=== PATIENT | male | born 1960 | race African-American/Black ===

== ENCOUNTER 2019-09-18 11:21 | Emergency (ER) | payer MEDICAID, OTHER ==
[~2019-09-18] VITALS: Ht 188 cm; Wt 65.0 kg
[2019-09-18 12:46] LABS: BASOPHILS % 0.5 % (0.0-2.0); EOSINOPHILS % 2.5 % (0.0-5.0); HEMOGLOBIN. 15.7 g/dL (14.0-18.0); LYMPHOCYTES % 19.5 % (20.0-50.0); MEAN CORPUSCULAR HEMOGLOBIN 35.6 pg (28.0-32.0); MEAN PLATELET VOLUME 7.9 fl (7.4-10.4); MONOCYTES % 10.7 % (2.0-8.0); NEUTROPHILS % 66.8 % (40.0-76.0); PLATELET 174 x1000/uL (130-400); RED BLOOD CELL COUNT 4.41 mill/uL (4.7-6.1); RED CELL DISTRIBUTION WIDTH 13.7 % (11.6-14.6)
[2019-09-18 12:53] LABS: CHLORIDE 107 mEq/L (98-107)
[2019-09-18 12:57] LABS: ETHANOL BLOOD 34 mg/dL
[2019-09-18 15:27] LABS: CLARITY URINE CLEAR (CLEAR); COLOR URINE YELLOW (YELLOW); KETONES URINE NEGATIVE (NEGATIVE); LEUKOCYTE ESTERASE URINE NEGATIVE (NEGATIVE); NITRITE URINE NEGATIVE (NEGATIVE); OCCULT BLOOD URINE NEGATIVE (NEGATIVE); PROTEIN URINE TRACE (NEGATIVE); SPECIFIC GRAVITY URINE 1.022 (1.005-1.030); UROBILINOGEN URINE 0.2 E.U./dL (0.2-1.0)
[2019-09-18 15:50] LABS: *AMPHETAMINES SCREEN URINE NEGATIVE (NEGATIVE); *BARBITURATES SCREEN URINE NEGATIVE (NEGATIVE); *BENZODIAZEPINES SCREEN URINE NEGATIVE (NEGATIVE); *COCAINE SCREEN URINE NEGATIVE (NEGATIVE)
[2019-09-18 15:51] LABS: CANNABINOID URINE SCREEN NEGATIVE (NEGATIVE); METHADONE URINE SCREEN NEGATIVE (NEGATIVE); OPIATES URINE SCREEN NEGATIVE (NEGATIVE); PHENCYCLIDINE URINE SCREEN NEGATIVE (NEGATIVE)
[2019-09-18 18:26] VITALS: BP 120/68
== END 2019-09-18 18:28 | disposition home or self-care (01) ==
LOC: ER 11:21
DX: R56.9 Unspecified convulsions (principal); F17.210 Nicotine dependence, cigarettes, uncomplicated
CPT/HCPCS: 36415; 71045; 80305; 80320; 81003; 83735; 83880; 84484; 93005; 99284; 99406; G0480

== ENCOUNTER 2022-10-19 01:59 | Emergency (ER) | payer MEDICAID ==
[~2022-10-19] VITALS: Ht 188 cm; Wt 62.0 kg
[2022-10-19] MEDS ORDERED: ALBUTEROL (0.083%) 2.5MG/3ML NEB HHN STA (03:14)
[2022-10-19] MEDS ORDERED: METHYLPREDNISOLONE SOD SUCC 125 MG/2 ML VIAL IV STA (03:14)
[2022-10-19] MEDS ORDERED: IPRATROPIUM BROMIDE (0.02%) 0.5MG/2.5ML NEB HHN STA (03:14)
[2022-10-19 03:26] LABS: BASOPHILS % 1.9 % (0.0-2.0); EOSINOPHILS % 2.6 % (0.0-5.0); HEMATOCRIT. 41.6 % (42.0-52.0); HEMOGLOBIN. 14.2 g/dL (14.0-18.0); LYMPHOCYTES % 27.6 % (20.0-50.0); MEAN CORPUSCULAR HEMOGLOBIN 34.9 pg (28.0-32.0); MEAN CORPUSCULAR VOLUME 102.1 fL (80.0-94.0); MEAN PLATELET VOLUME 7.6 fl (7.4-10.4); NEUTROPHILS % 54.9 % (40.0-76.0); PLATELET 207 x1000/uL (130-400); RED BLOOD CELL COUNT 4.07 mill/uL (4.7-6.1); RED CELL DISTRIBUTION WIDTH 14.9 % (11.6-14.6)
[2022-10-19 03:34] LABS: CHLORIDE 106 mEq/L (98-107)
[2022-10-19 11:20] VITALS: BP 125/73
== END 2022-10-19 11:37 | disposition left against medical advice (07) ==
LOC: ER 01:59 → EDBEDREQTM 05:59 → EDBEDREQ 05:59 → ER 11:37 → CANBEDREQ 10-21 09:27
DX: J44.1 Chronic obstructive pulmonary disease with (acute) exacerbation (principal); I49.8 Other specified cardiac arrhythmias; F17.210 Nicotine dependence, cigarettes, uncomplicated
CPT/HCPCS: 36415; 71045; 80053; 83880; 84484; 85025; 93005; 96374; 99285; J2930; Z7610

== ENCOUNTER 2022-10-23 22:57 | Emergency (ER) | payer MEDICAID ==
[~2022-10-23] VITALS: Ht 188 cm; Wt 59.0 kg
[2022-10-23 23:00] VITALS: BP 156/106
== END 2022-10-24 01:48 | disposition home or self-care (01) ==
LOC: ER 23:17
DX: R06.02 Shortness of breath (principal); R94.31 Abnormal electrocardiogram [ECG] [EKG]; J44.9 Chronic obstructive pulmonary disease, unspecified; F17.210 Nicotine dependence, cigarettes, uncomplicated
CPT/HCPCS: 93005; 99283

== ENCOUNTER 2022-12-15 13:09 | Inpatient (IN) | payer MEDICAID ==
[~2022-12-15] VITALS: Ht 175.3 cm; Wt 55.3 kg
[2022-12-15] MEDS ORDERED: SODIUM CHLORIDE 0.9% 1000ML BAG (SEPSIS BOLUS) IV ONE (13:45)
[2022-12-15 14:04] LABS: HEMATOCRIT. 48.1 % (42.0-52.0); MEAN CORPUSCULAR HEMOGLOBIN 34.4 pg (28.0-32.0); MEAN CORPUSCULAR VOLUME 103.2 fL (80.0-94.0); MEAN PLATELET VOLUME 8.7 fl (7.4-10.4); PLATELET 151 x1000/uL (130-400); RED BLOOD CELL COUNT 4.66 mill/uL (4.7-6.1); RED CELL DISTRIBUTION WIDTH 14.5 % (11.6-14.6)
[2022-12-15 14:37] LABS: PROTHROMBIN TIME 10.8 sec (9.6-11.0)
[2022-12-15 14:38] LABS: CHLORIDE 94 mEq/L (98-107)
[2022-12-15 14:43] LABS: PLATELET ESTIMATE NORMAL
[2022-12-15 14:49] LABS: ETHANOL BLOOD 70 mg/dL
[2022-12-15] MEDS ORDERED: LEVOFLOXACIN 500MG PREMIX 100 ML IV ONE (15:15)
[2022-12-15] MEDS ORDERED: METRONIDAZOLE 500MG TABLET PO ONE (15:15)
[2022-12-15 15:50] LABS: CLARITY URINE CLOUDY (CLEAR); COLOR URINE YELLOW (YELLOW); KETONES URINE NEGATIVE (NEGATIVE); LEUKOCYTE ESTERASE URINE TRACE (NEGATIVE); NITRITE URINE NEGATIVE (NEGATIVE); OCCULT BLOOD URINE 3+ (NEGATIVE); PH URINE 7.5 (4.5-8.0); PROTEIN URINE 2+ (NEGATIVE); SPECIFIC GRAVITY URINE 1.008 (1.005-1.030)
[2022-12-15] MEDS ORDERED: VANCOMYCIN 1G PREMIX 200 ML IV NR (16:00)
[2022-12-15 16:06] LABS: *AMPHETAMINES SCREEN URINE NEGATIVE (NEGATIVE); *BARBITURATES SCREEN URINE NEGATIVE (NEGATIVE); *BENZODIAZEPINES SCREEN URINE NEGATIVE (NEGATIVE); *COCAINE SCREEN URINE NEGATIVE (NEGATIVE); CANNABINOID URINE SCREEN NEGATIVE (NEGATIVE); METHADONE URINE SCREEN NEGATIVE (NEGATIVE); OPIATES URINE SCREEN NEGATIVE (NEGATIVE); PHENCYCLIDINE URINE SCREEN NEGATIVE (NEGATIVE)
[2022-12-15] MEDS ORDERED: MAGNESIUM/ALUMINUM HYDROXIDE/SIMETHICONE 30ML UDC PO PRN (20:00)
[2022-12-15] MEDS ORDERED: ONDANSETRON HCL 4MG/2ML INJ IV PRN (20:00)
[2022-12-15] MEDS ORDERED: ACETAMINOPHEN 325MG TABLET PO PRN ×2 (20:00)
[2022-12-15] MEDS ORDERED: CLONIDINE 0.1MG TABLET PO PRN (20:00)
[2022-12-15] MEDS ORDERED: VANCOMYCIN 1G PREMIX 200 ML IV SCH (20:00)
[2022-12-15] MEDS ORDERED: IPRATROPIUM/ALBUTEROL 0.5-3(2.5)MG/3ML NEB NEB PRN (20:00)
[2022-12-15 20:10] VITALS: BP 129/71
[2022-12-15] MEDS ORDERED: DEXTROSE 50% WATER 50ML SYRINGE IV PRN (20:45)
[2022-12-15] MEDS: INSULIN LISPRO 100 UNITS/ML SUBCUT SCH (21:00)
[2022-12-15] MEDS: BLOOD SUGAR DIAGNOSTIC STRIP TEST SCH (21:56)
[2022-12-15] MEDS ORDERED: LEVOFLOXACIN 500MG PREMIX 100 ML IV NR (22:00)
[2022-12-15] MEDS ORDERED: FOLIC ACID 1 MG, THIAMINE HCL 100 MG, MVI, ADULT NO.1 10 ML in DEXTROSE 5% WATER 1,000 ML IV ONE ×4 (22:00)
[2022-12-15] MEDS ORDERED: VANCOMYCIN 500MG PREMIX 100 ML IV NR (22:00)
[2022-12-16] VITALS: BP 132/76
[2022-12-16 03:28] LABS: CREATINE KINASE MB FRACTION 32.9 ng/mL (0.5-3.6)
[2022-12-16 04:00] VITALS: BP 130/96
[2022-12-16] MEDS ORDERED: NITROGLYCERIN 0.4MG TABLET SL SL PRN (05:00)
[2022-12-16] MEDS ORDERED: LORAZEPAM 2MG/ML CPJ IV PRN (05:15)
[2022-12-16] MEDS: BLOOD SUGAR DIAGNOSTIC STRIP TEST SCH ×4 (06:16→19:40)
[2022-12-16 07:39] LABS: HEMATOCRIT. 43.7 % (42.0-52.0); HEMOGLOBIN. 14.8 g/dL (14.0-18.0); MEAN CORPUSCULAR HEMOGLOBIN 34.2 pg (28.0-32.0); MEAN CORPUSCULAR VOLUME 100.9 fL (80.0-94.0); MEAN PLATELET VOLUME 9.2 fl (7.4-10.4); PLATELET 130 x1000/uL (130-400); RED BLOOD CELL COUNT 4.33 mill/uL (4.7-6.1); RED CELL DISTRIBUTION WIDTH 13.9 % (11.6-14.6)
[2022-12-16] MEDS: INSULIN LISPRO 100 UNITS/ML SUBCUT SCH ×4 (07:58→19:59)
[2022-12-16 08:00] VITALS: BP 124/89
[2022-12-16 08:05] LABS: CREATINE KINASE MB FRACTION 31.6 ng/mL (0.5-3.6)
[2022-12-16 09:31] LABS: CHLORIDE 96 mEq/L (98-107)
[2022-12-16 09:45] LABS: HDL CHOLESTEROL 98 mg/dL (40-59); LDL CHOLESTEROL 75 mg/dL (5-100); T4 FREE 1.25 ng/dL (0.76-1.46)
[2022-12-16] MEDS: PANTOPRAZOLE SODIUM 40 MG/VIAL IV SCH (10:13)
[2022-12-16] MEDS: ENOXAPARIN 40MG/0.4ML SYR SUBCUT SCH (10:14)
[2022-12-16] MEDS: MULTIVITAMINS,THER W-MINERALS TABLET PO SCH (10:15)
[2022-12-16] MEDS: FOLIC ACID 1MG TABLET PO SCH (10:15)
[2022-12-16] MEDS: THIAMINE HCL 100MG TABLET PO SCH (10:15)
[2022-12-16] MEDS: AMLODIPINE 5MG TABLET PO SCH (10:15)
[2022-12-16] MEDS: ASPIRIN 81MG TABLET PO SCH (10:16)
[2022-12-16] MEDS: SODIUM CHLORIDE 0.9% 1,000 ML IV SCH ×2 (10:17→23:20)
[2022-12-16] MEDS ORDERED: VANCOMYCIN 500MG PREMIX 100 ML IV SCH (11:00)
[2022-12-16 12:00] VITALS: BP 125/71
[2022-12-16] MEDS ORDERED: CEFTRIAXONE 1,000 MG in DEXTROSE 5% WATER 50 ML IV SCH (13:00)
[2022-12-16 13:23] LABS: PLATELET ESTIMATE NORMAL
[2022-12-16] MEDS ORDERED: METRONIDAZOLE 500MG TABLET PO SCH (14:00)
[2022-12-16 16:00] VITALS: BP 127/75
[2022-12-16] MEDS ORDERED: LEVOFLOXACIN 250MG PREMIX 50 ML IV SCH (16:00)
[2022-12-16] MEDS ORDERED: LEVOFLOXACIN 500MG PREMIX 100 ML IV SCH (16:00)
[2022-12-16] MEDS ORDERED: AZITHROMYCIN 500 MG TABLET PO SCH (18:30)
[2022-12-16] MEDS ORDERED: ALBUTEROL (0.083%) 2.5MG/3ML NEB HHN PRN (18:30)
[2022-12-16] MEDS ORDERED: IPRATROPIUM BROMIDE (0.02%) 0.5MG/2.5ML NEB HHN PRN (18:30)
[2022-12-16 20:00] VITALS: BP 127/76
[2022-12-17] VITALS: BP 122/74
[2022-12-17 04:00] VITALS: BP 122/76
[2022-12-17] MEDS: BLOOD SUGAR DIAGNOSTIC STRIP TEST SCH (06:24)
[2022-12-17 07:36] LABS: CHLORIDE 99 mEq/L (98-107)
[2022-12-17] MEDS: INSULIN LISPRO 100 UNITS/ML SUBCUT SCH (07:56)
[2022-12-17 08:00] VITALS: BP 135/78
[2022-12-17] MEDS: ENOXAPARIN 40MG/0.4ML SYR SUBCUT SCH (09:00)
[2022-12-17] MEDS: PANTOPRAZOLE SODIUM 40 MG/VIAL IV SCH (09:00)
[2022-12-17] MEDS: ASPIRIN 81MG TABLET PO SCH (09:12)
[2022-12-17] MEDS: THIAMINE HCL 100MG TABLET PO SCH (09:13)
[2022-12-17] MEDS: FOLIC ACID 1MG TABLET PO SCH (09:13)
[2022-12-17] MEDS: AMLODIPINE 5MG TABLET PO SCH (09:13)
[2022-12-17] MEDS: MULTIVITAMINS,THER W-MINERALS TABLET PO SCH (09:14)
[2022-12-19 10:08] LABS: % CD 3 POS. LYMPHOCYTES 74.1 % (57.5-86.2); % CD 4 POS. LYMPHOCYTES 40.3 % (30.8-58.5); % CD 8 POS. LYMPH 35.6 % (12.0-35.5); ABSOLUTE BASOPHILS 0.1 x10E3/uL (0.0-0.2); ABSOLUTE CD 3 889 /uL (622-2402); ABSOLUTE CD 4 HELPER 484 /uL (359-1519); ABSOLUTE CD 8 SUPPRESSOR 427 /uL (109-897); ABSOLUTE LYMPHOCYTES 1.2 x10E3/uL (0.7-3.1); ABSOLUTE MONOCYTES 0.9 x10E3/uL (0.1-0.9); BASOPHILS 0 % (Not Estab.); CD4/CD8 RATIO 1.13 (0.92-3.72); HEMATOCRIT 44.1 % (37.5-51.0); HEMOGLOBIN 14.9 g/dL (13.0-17.7); IMMATURE GRANULOCYTES 0 % (Not Estab.); LYMPHOCYTES 8 % (Not Estab.); MEAN CORPUSCULAR HEMOGLOBIN 33.6 pg (26.6-33.0); MEAN CORPUSCULAR HGB CONC. 33.8 g/dL (31.5-35.7); MEAN CORPUSCULAR VOLUME 99 fL (79-97); MONOCYTES 6 % (Not Estab.); NEUTROPHILS 86 % (Not Estab.); PLATELETS 120 x10E3/uL (150-450); RBC 4.44 x10E6/uL (4.14-5.80); RED CELL DISTRIBUTION WIDTH 12.8 % (11.6-15.4); WBC 16.2 x10E3/uL (3.4-10.8)
== END 2022-12-17 11:16 | disposition left against medical advice (07) | DRG 720 ==
LOC: ER 13:09 → 7WST 17:54 → ENRESERV 18:11 → EDBEDREQTM 18:11 → EDBEDREQ 18:11
PROVIDERS: ADMIT Hospitalist; ATTEND Hospitalist
DX: A41.9 Sepsis, unspecified organism (principal); J96.01 Acute respiratory failure with hypoxia; R65.21 Severe sepsis with septic shock; G92.8 Other toxic encephalopathy; A04.5 Campylobacter enteritis; E11.9 Type 2 diabetes mellitus without complications; J44.9 Chronic obstructive pulmonary disease, unspecified; Z53.29 Procedure and treatment not carried out because of patient's decision for other reasons; R74.01 Elevation of levels of liver transaminase levels; F10.239 Alcohol dependence with withdrawal, unspecified; F17.210 Nicotine dependence, cigarettes, uncomplicated; Z56.0 Unemployment, unspecified; Z68.30 Body mass index [BMI] 30.0-30.9, adult; Z79.899 Other long term (current) drug therapy; Y90.3 Blood alcohol level of 60-79 mg/100 ml
CPT/HCPCS: 36415; 71045; 76700; 80048; 80053; 80061; 80202; 80305; 80320; 81003; 82550; 82553; 82962; 83036; 83605; 83735; 83880; 84100; 84145; 84439; 84443; 84484; 85025; 85379; 86359; 86360; 87015; 87045; 87177; 87209; 87427; 87449; 87493; 89055; 93005; 99291; C1893; C9113; J0696; J1650; J1956; J3370; J3411; J3490; J7030; J7060; J7070; G0480